=== PATIENT | female | born 1950 | race Caucasian/White ===

== ENCOUNTER 2018-07-22 15:55 | Inpatient (IN) | payer MEDICAID ==
[~2018-07-22] VITALS: Ht 182.8 cm; Wt 189.6 kg
--- NOTE | ~2018-07-22 | PR ---
[place], [place] PROGRESS NOTE [id number] UNIT #: [id number] ROOM: 427 DOCTOR: LOBITO KEARNEY,VIVIEN MORGAN) BIRTHDATE: [birth year] DOS: At the present time, the patient did agree to return to the [facility] in [place], [place]. When she arrives at the facility, she may eventually choose to go to another facility, but at the present time, she is quite willing to return for continued care. Thank you for this consult. VIVIEN ROBIN ED.D CM:ARMANDO [phone] VIVIEN ROBIN ED.D (BOB) 07/26/18 2321 interface
--- NOTE | ~2018-07-22 | CON ---
[place], [place] REPORT OF CONSULTATION NAME: [facility]ITH [id number] UNIT #: [id number] ROOM: 427 DOCTOR: VIVIEN ROBIN ED.D) BIRTHDATE: [birth year] DOS: HISTORY OF PRESENT ILLNESS: The patient is a 68-year-old female referred by the hospitalist for competency evaluation. At the present time, this patient is on the 4th floor at [facility]. She states that she is and has been residing in [facility]. She does have a daughter, who, according to the patient, is a nurse in the [place], [place] area. This patient does indicate she has multiple family physicians, but recently has been living at the [facility] in [place], [place]. Apparently, she was sent here from the [facility] for psychiatric evaluation and admission because of her delusional thoughts. This patient's medical history is pertinent for congestive heart failure, diabetes mellitus type 2, atrial fibrillation, hypothyroidism, sleep apnea, himanshu, peripheral vascular disorder and bipolar disorder. Her medications include Eliquis, calcium, iron, insulin, Lasix, Zestril, and Synthroid. This patient denies any substance abuse issues. She is a morbidly obese female and she realizes that she has issues with "blood clots" and needs medical care. She has difficulty with continence due to the fact she is on Lasix according to the patient. She was awake, alert and oriented in all three spheres. She adamantly denies any suicidal ideation or plan. She states she has never been hospitalized in a psychiatric facility in the past. At the present time, she does not appear to be having any active hallucinations. She is upset with Dr. Monet because she does not want to return to the [facility]. She does not believe she needs to go there. She does not want to go to the [facility] in [place], but it will depend upon where she can be placed once she is discharged. I do not believe at this point in time, I can force an involuntary admission to this patient to any kind of psychiatric facility because she is not a danger to herself or others and adamantly denies any suicidal ideation or plan. I spoke with case management and also with the hospitalist and they will attempt to send her back to the [facility] or another appropriate facility. She, again, adamantly refuses to go to the [facility] and refuses to receive any more treatment from Dr. Monet or any other psychiatric professional. She does appear to have a significant personality disorder, but does not actually appear to be psychotic at this time. DIAGNOSIS: Personality disorder, not otherwise specified. RECOMMENDATIONS: Since the patient refuses any psychiatric treatment and is not homicidal or suicidal, she should be placed in some type of long-term care facility with the assistance of her family. Thank you very much for this consult. [place], [place] REPORT OF CONSULTATION NAME: FIGUEROA SMITH UNIT #: [id number] ROOM: 427 DOCTOR: VIVIEN ROBIN ED.D (VITA) BIRTHDATE: [birth year] VIVIEN ROBIN ED.D CM:CONSTR:REPORT OF CONSULTATION 1104 08/17/18 1320 interface FRANCIS MONET MD
[~2018-07-22 15:55] MED LIST: 24 HOUR ALLERG9.9 ML NAS; ACIDOPHILUS1 EAC4 PO; AMMONIUM LACTA385 GM T; B12,B-12,B 12500 MC1 PO; CALCIUM500 M1 PO; CYCLOBENZAPRINE10 MG PO; DIAPER RASH57 GM T; ELIQUIS5 M1 PO; ERGOCAL2500 UNIT PO; HUMALOG100 UNIT/1 SQ; IRON325 M1 PO; LACTULOSE20 GM/30 M PO; LASIX40 MG PO; LEVOTHYROXINE300 MCG PO; LIDODERM1 EACH T; LIPITOR10 MG PO; MELATONIN3 MG PO; NYSTOP60 GM T; OYSTER SHELL 51 EACH PO; PANTOPRAZOLE SO40 MG PO; PERCOCET 5-3251 EACH PO; Rocaltrol0.25 MCG PO; TAB-A-VITE1 EACH PO; ZANTAC 150150 MG PO; ZESTRIL2.5 MG PO
[2018-07-22 16:00] VITALS: BP 153/65
[2018-07-22 16:03] VITALS: BP 127/67
--- NOTE | 2018-07-22 16:03 | NUR ---
A 68, admitted to , under the services of AIDA Rodriguez DO with a diagnosis of CELLULITIS. Chief complaint is CELLULITIS. Patient arrived via bed from [place]. Monitor applied. Initial assessment completed. Vital signs taken and recorded. AIDA RODRIGUEZ DO notified of admission to the unit. Orders received. See assessment for past medical history, medications and allergies. Patient and/or family oriented to unit. [facility] visitation policy reviewed. Clothing/patient valuable form completed. EVIE TINAJERO
--- NOTE | 2018-07-22 17:14 | NUR ---
Med rec reviewed with med rec provided by [facility]. All meds up to date in computer.
[2018-07-22 17:27] LABS: BASO # 0.1 10*3/uL (0.0-0.1); BASO % 1.2 % (0.0-1.0); EOS # 0.3 10*3/uL (0.0-0.4); EOS % 4.3 % (1.0-4.0); HEMATOCRIT 33.7 % (37.0-47.0); HEMOGLOBIN 10.6 g/dl (12.0-16.0); LYMPH # 1.6 10*3/uL (1.3-4.4); LYMPH % 20.8 % (27.0-41.0); MEAN CELL VOLUME 93.6 fl (81.0-99.0); MEAN CORPUSCULAR HGB 29.4 pg (27.0-31.0); MEAN CORPUSCULAR HGB CONC 31.5 g/dl (33.0-37.0); MEAN PLATELET VOLUME 10.5 fl (9.6-12.3); MONO # 0.6 10*3/uL (0.1-1.0); MONO % 7.4 % (3.0-9.0); NEUT # 4.9 10*3/uL (2.3-7.9); NEUT % 65.9 % (47.0-73.0); PLATELET COUNT AUTOMATED 226 10*3/uL (130-400); RED CELL DISTRI WIDTH 13.3 % (0-14.5); WHITE BLOOD COUNT 7.5 10*3/uL (4.8-10.8)
--- NOTE | 2018-07-22 17:40 | NUR ---
CONSULT CALLED TO [facility] FOR DR ZACARIAS.
[2018-07-22 17:44] LABS: ALBUMIN 2.6 gm/dl (3.1-4.5); ALKALINE PHOSPHATASE 99 U/L (45-117); BUN 15 mg/dl (7-24); CHLORIDE 105 mmol/L (98-107); CREATININE 0.97 mg/dL (0.55-1.02); POTASSIUM 3.6 mmol/L (3.5-5.1); SGOT/AST 11 IU/L (3-35); SGPT/ALT 15 U/L (12-78); SODIUM 142 mmol/L (136-145); TOTAL PROTEIN 6.4 gm/dL (6.4-8.2)
--- NOTE | 2018-07-22 17:45 | NUR ---
CONSULT CALLED TO DR BOWLES REGARDING PT WOUNDS. PHYSICIAN STATES THAT HE WILL SEE PT ON WEDNESDAY.
--- NOTE | 2018-07-22 18:36 | NUR ---
IV started right forearm with #22 protective cath after 0 attempts. Site prepped with Chloroprep. Sterile dressing applied. Patient tolerated procedure well. IV antibiotic infusing per order. EVIE TINAJERO
--- NOTE | 2018-07-22 20:00 | NUR ---
PT. ATTENDANT IN AND OUT OF ROOM FROM MULTIPLE CALL LIGHT HELPING PATIENT GET COMFORTABLE AND DOING PERICARE FOR INCONTINENT EPISODES.
--- NOTE | 2018-07-22 22:23 | NUR ---
DR. WILLOUGHBY IN ROOM AND EXAMINED PT. WOUND CULTURE OBTAINED FROM RIGHT HIP WOUND. 1/2 OF THE CULTURE SWAB FIT IN WOUND. DR. PATEL. PT. TOLERATED WELL. WOUND CULT SENT TO LAB FOR TESTING.
[2018-07-23] VITALS: BP 99/71
--- NOTE | 2018-07-23 03:59 | NUR ---
24 HR chart check completed.
[2018-07-23 06:59] LABS: BASO # 0.1 10*3/uL (0.0-0.1); BASO % 0.9 % (0.0-1.0); EOS # 0.2 10*3/uL (0.0-0.4); EOS % 3.4 % (1.0-4.0); HEMATOCRIT 33.1 % (37.0-47.0); HEMOGLOBIN 10.3 g/dl (12.0-16.0); LYMPH % 15.9 % (27.0-41.0); MEAN CELL VOLUME 93.8 fl (81.0-99.0); MEAN CORPUSCULAR HGB 29.2 pg (27.0-31.0); MEAN CORPUSCULAR HGB CONC 31.1 g/dl (33.0-37.0); MEAN PLATELET VOLUME 10.4 fl (9.6-12.3); MONO # 0.5 10*3/uL (0.1-1.0); MONO % 7.5 % (3.0-9.0); NEUT # 4.7 10*3/uL (2.3-7.9); PLATELET COUNT AUTOMATED 209 10*3/uL (130-400); RED BLOOD COUNT 3.53 10*6/uL (4.10-5.10); RED CELL DISTRI WIDTH 13.5 % (0-14.5); WHITE BLOOD COUNT 6.5 10*3/uL (4.8-10.8)
[2018-07-23 07:12] LABS: ALBUMIN 2.6 gm/dl (3.1-4.5); ALKALINE PHOSPHATASE 96 U/L (45-117); BUN 13 mg/dl (7-24); CHLORIDE 107 mmol/L (98-107); CHOLESTEROL 141 mg/dL (<200); CREATININE 0.87 mg/dL (0.55-1.02); FREE T4 1.48 ng/dl (0.76-1.46); HDL CHOLESTEROL 38 mg/dl (40-60); LDL CHOLESTEROL 80 mg/dL (9-159); POTASSIUM 3.5 mmol/L (3.5-5.1); SGOT/AST 9 IU/L (3-35); SGPT/ALT 14 U/L (12-78); SODIUM 143 mmol/L (136-145); TOTAL PROTEIN 6.2 gm/dL (6.4-8.2); TRIGLYCERIDES 114 mg/dl (<150); VLDL CHOLESTEROL 23 mg/dL (6-40)
[2018-07-23 08:57] LABS: VITAMIN D, 25-HYDROXY 56.4 ng/mL (30-100)
[2018-07-23 09:07] VITALS: BP 127/62
[2018-07-23 12:13] VITALS: BP 126/58
--- NOTE | 2018-07-23 13:53 | NUR ---
SPOKE WITH DR FREEDMAN REGARDING CONSULT. NEW ORDERS RECEIVED FOR KUB IN AM, BMP AND CBC IN AM. AM NURSE ON 07/24/[address] FREEDMAN AT 1000 WITH RESULTS.
[2018-07-23 16:04] VITALS: BP 124/60
--- NOTE | 2018-07-23 16:06 | NUR ---
O2 SAT 89-90% ON ROOM AIR, IGOR CASE NOTIFIED. O2 APPLIED VIA NASAL CANNULA AT 2 LITERS PER MINUTE.
--- NOTE | 2018-07-23 17:00 | NUR ---
PATIENT ATTENDANT REPORTS TO THIS NURSE THAT PATIENT HAS NEW SKIN TEAR TO MEDIAL ASPECT OF LEFT FOOT. UPON ASSESSING FOOT, DRESSING APPLIED. WILL NOTIFY ALL APPROPRIATE PARTIES.
[2018-07-23 20:00] VITALS: BP 113/66; BP 130/54
--- NOTE | 2018-07-23 21:50 | NUR ---
BLOOD SUGAR 120; NO COVERAGE REQUIRED.
[2018-07-24] VITALS: BP 121/64
--- NOTE | 2018-07-24 00:18 | NUR ---
TYLENOL GIVEN PER ORDER FOR HEADACHE RATED "6" SEE APR. PERICARE GIVEN FOR INCONT URINE. REPOSITIONED PT. IN BED FOR COMFORT.
--- NOTE | 2018-07-24 01:15 | NUR ---
PT. SLEEPING TYLENOL EFFECTIVE FOR PAIN.
--- NOTE | 2018-07-24 03:40 | NUR ---
24 HR chart check completed.
--- NOTE | 2018-07-24 06:10 | NUR ---
INCONT CARE DONE. PROTECTIVE BARRIER OINT. APPLIED TO PERIAREA. PT. REFUSED IV ANTIBIOTIC AT THIS TIME. STATED "I DON'T WANT THOSE RIGHT NOW"
--- NOTE | 2018-07-24 06:35 | NUR ---
DR FRAUSTO AWARE OF [facility] 26.9
[2018-07-24 07:54] LABS: BASO # 0.1 10*3/uL (0.0-0.1); BASO % 0.9 % (0.0-1.0); EOS # 0.2 10*3/uL (0.0-0.4); EOS % 1.7 % (1.0-4.0); HEMATOCRIT 31.7 % (37.0-47.0); LYMPH % 10.6 % (27.0-41.0); MEAN CELL VOLUME 93.2 fl (81.0-99.0); MEAN CORPUSCULAR HGB 29.4 pg (27.0-31.0); MEAN CORPUSCULAR HGB CONC 31.5 g/dl (33.0-37.0); MEAN PLATELET VOLUME 10.4 fl (9.6-12.3); MONO # 0.6 10*3/uL (0.1-1.0); MONO % 6.8 % (3.0-9.0); NEUT # 7.1 10*3/uL (2.3-7.9); NEUT % 79.7 % (47.0-73.0); PLATELET COUNT AUTOMATED 186 10*3/uL (130-400); RED CELL DISTRI WIDTH 13.4 % (0-14.5)
[2018-07-24 08:00] VITALS: BP 138/55
[2018-07-24 08:07] LABS: BUN 14 mg/dl (7-24); CHLORIDE 109 mmol/L (98-107); CREATININE 0.95 mg/dL (0.55-1.02); POTASSIUM 3.4 mmol/L (3.5-5.1); SODIUM 144 mmol/L (136-145)
--- NOTE | 2018-07-24 09:00 | NUR ---
PT CRYING OUT AND APPEARS UPSET DUE TO HER BED ALARM AND HER RED BED. 1:1 INTERVENTIONS GIVEN AND IT IS EXPLAINED TO HER THAT WE ARE TRYING TO KEEP HER SAFE; AND THE RED BED IS TO HELP PROMOTE HEALING OF HER WOUNDS THAT WERE PRESENT ON ADMISSION. PT STILL UPSET AT THIS TIME. WILL CONTINUE TO EDUCATE PT. PT REFUSES AM IRON 325MG AND ROCALTROL PILL. WILL NOTIFY PHYSICIAN. PT CURRENTLY SITTING UP IN BED, LOOKING AT IPAD. BED ALARM AND ALL SAFETY MEASURES IN PLACE. CALL LIGHT IN REACH.
--- NOTE | 2018-07-24 09:30 | NUR ---
PHYSICAL THERAPY PT EVAL COMPLETED ON LEVEL 4: FULL EVALUATION TO FOLLOW. RECOMMEND PT WHILE HERE TO ADDRESS DECREASED STRENGTH AND FUNCTIONAL MOBILITY . PT EVAL IS MODERATE COMPLEXITY BASED ON CHART REVIEW, TEST RESULTS AND EVALUATION: 21703. D/C RECOMMENDATIONS ARE TO RETURN TO FACILITY WITH SNF ON D/C TO WORK ON REGAINING HIGHEST LEVEL OF FUNCTIONAL MOBILITY PATIENT WNATS TO BE ABLE TO WALK SHORT DISTANCES AND HAS BEEN UNABLE TO DO SO FOR OVER A YEAR. THANK YOU FOR REFERRAL EVONNE FLORES PT
--- NOTE | 2018-07-24 11:03 | NUR ---
NOTIFIED DR MIRELES THAT PT IS CALLING ADMISSIONS CLERK OF HOSPITAL AND ATTEMPTING TO BE CONNECTED TO [employer]. ALSO NOTIFIED PHYSICIAN THAT PT IS CONTINUING TO HAVE BEHAVIORS THIS MORNING SUCH CALLING OUT/COMPLAINING ABOUT BEDS/COMPLAINING ABOUT BED ALARM. NEW ORDERS RECEIVED TO NOTIFY JOSE CONSULTED. ROSHNI FRIAS CALLED, VOICEMAIL LEFT ON HER ANSWERING MESSAGE. AWAITING CALL BACK. WILL CONTINUE TO MONITOR PT.
[2018-07-24 12:00] VITALS: BP 148/49
--- NOTE | 2018-07-24 12:59 | NUR ---
SPOKE WITH ROSHNI FRIAS REGARDING PT BEHAVIORS. NEW ORDERS RECEIVED: DISCONTINUE RISPERDAL. NEW ORDERS: INVEGA 6 MG PO Q AM AND TRINTELLIX 10 MG PO QHS.
--- NOTE | 2018-07-24 15:30 | NUR ---
PT STATES THAT SHE NO LONGER WANTS TO BE ON A RED LOW AIR LOSS MATTRESS AND IS REQUESTING A FIRMER MATTRESS. THE BENEFITS OF THE LOW AIR LOSS MATTRESS IS EXPLAINED TO THE PATIENT NUMEROUS TIMES. WHEN ATTEMPTING TO EXPLAIN THESE THINGS TO THE PATIENT, PATIENT BECOMES EMOTIONAL AND CRIES. AFTER SPEAKING WITH SHIFT DIRECTOR, IT IS DECIDED THAT WE WILL TRANSFER PATIENT FROM RED BED TO A BLUE BED. PT CURRENTLY ON BLUE MATTRESS AT THIS TIME AND STATES THAT SHE IS MUCH MORE COMFORTABLE.
[2018-07-24 16:00] VITALS: BP 126/59
--- NOTE | 2018-07-24 16:52 | NUR ---
PT IS DENYING OSCAL MEDICATION AND IS DENYING IV LASIX. WILL NOTIFY PHYSICIANS. ATTEMPTSX3 MADE, IV LASIX EXPLAINED TO PT, INEFFECTIVE. WILL NOTIFY PHYSICIANS.
[2018-07-24 20:00] VITALS: BP 129/58
--- NOTE | 2018-07-24 22:46 | NUR ---
PT's IV INFILTRATED AND SHE IS REFUSING A NEW SITE TO BE STARTED. SHE STATES "JUST TAKE IT OUT, I'M DONE WITH IT, I DON'T WANT ANYTHING ELSE THROUGH THERE". DR. FRAUSTO NOTIFIED. IV TO RIGHT ARM REMOVED.
[2018-07-25] VITALS: BP 110/56
--- NOTE | 2018-07-25 02:42 | NUR ---
PT SITTING UP AT SIDE OF BED AT THIS TIME WITH COMPLAINTS OF PAIN TO HER LEFT ELBOW. TYLENOL WAS REQUESTED AND RECIEVED. RESPIRATIONS ARE EASY AND NONLABORED. BED IS LOCKED AND IN THE LOWEST POSITION, CALL LIGHT IS WITHIN REACH. WILL CONTINUE TO MONITOR PT & REASSESS PAIN LEVEL.
--- NOTE | 2018-07-25 05:25 | NUR ---
DISCUSSED WITH PT THE IMPORTANCE OF HER IV MEDICATIONS, INCLUDING HER ANTIBIOTICS AND LASIX, AND THE NEED FOR THEM TO CONTINUE TO GET BETTER. PT VERBALIZES UNDERSTANDING BUT IS STILL REFUSING IV ACCESS AT THIS TIME STATING "I AM DONE WITH THAT REGIMEN" AND THAT "I WILL ONLY TAKE PILLS".
--- NOTE | 2018-07-25 06:26 | NUR ---
MESSAGE PUT IN TO PHOTOGRAPHER LITHOGRAPHIC AT PT'S REQUEST BECAUSE SHE STATES SHE DOES NOT WANT TO RETURN TO [facility] FOR SEVERAL DIFFERENT REASONS. THROUGHOUT THE NIGHT PT VOICED MANY CONCERNS ABOUT RETURNING AND ASKED HOW SHE GOES ABOUT "CUTTING TIES" WITH THE FACILITY ALL TOGETHER.
[2018-07-25 07:03] LABS: BASO # 0.1 10*3/uL (0.0-0.1); BASO % 1.2 % (0.0-1.0); EOS # 0.3 10*3/uL (0.0-0.4); HEMATOCRIT 34.4 % (37.0-47.0); HEMOGLOBIN 10.6 g/dl (12.0-16.0); LYMPH # 1.1 10*3/uL (1.3-4.4); LYMPH % 16.6 % (27.0-41.0); MEAN CELL VOLUME 93.7 fl (81.0-99.0); MEAN CORPUSCULAR HGB 28.9 pg (27.0-31.0); MEAN CORPUSCULAR HGB CONC 30.8 g/dl (33.0-37.0); MEAN PLATELET VOLUME 10.8 fl (9.6-12.3); MONO # 0.5 10*3/uL (0.1-1.0); MONO % 7.3 % (3.0-9.0); NEUT # 4.8 10*3/uL (2.3-7.9); NEUT % 69.5 % (47.0-73.0); PLATELET COUNT AUTOMATED 205 10*3/uL (130-400); RED BLOOD COUNT 3.67 10*6/uL (4.10-5.10); RED CELL DISTRI WIDTH 13.2 % (0-14.5); WHITE BLOOD COUNT 6.9 10*3/uL (4.8-10.8)
[2018-07-25 07:20] LABS: BUN 16 mg/dl (7-24); CHLORIDE 108 mmol/L (98-107); CREATININE 1.05 mg/dL (0.55-1.02); POTASSIUM 3.7 mmol/L (3.5-5.1); SODIUM 142 mmol/L (136-145)
--- NOTE | 2018-07-25 07:40 | NUR ---
PHYSICAL THERAPY Nursing screen received. PT orders also received. Thank you. Kay Bradshaw,PT
[2018-07-25 08:00] VITALS: BP 123/55
--- NOTE | 2018-07-25 08:41 | NUR ---
FIGUEROA SMITH [id number] Please refer to the physician's history and physical for past medical history, comorbid conditions, and allergies. Diagnosis: CELLULITIS Arnoldo Score: 13,AT RISK WOUND DESCRIPTIONS: WOUND #1 LEFT HEEL INTACT, RED AND BLANCABLE. WOUND #2 RIGHT GREAT TOE RED AND EDEMA NOTED. NO DRAINAGE AT TIME OF ASSESSMENT. Wound Number: 3 Location of the wound: LEFT GLUTEAL FOLD Thickness: Partial Size: 0.5cm X 1.5cm X 0.1cm Tunneling: NONE Undermining: NONE Sinus Tract: NONE Presence of Exudate: Serous Amount: Light Color: Red Odor: None Periwound Skin Appearance: Normal Wound edges: APPROXIMATED Pain (associated with wound): DENIED AT TIME OF ASSESSMENT How does patient state this happened? PATIENT UNSURE HOW THIS HAPPENED. Wound Number: 4 Location of the wound: RIGHT HIP Thickness: Full Size: 0.6cm X 4cm X 0.1cm Tunneling: NONE Undermining: NONE Sinus Tract: NONE Presence of Exudate: Serous Amount: Light Color: Red, Yellow Odor: None Periwound Skin Appearance: Erythema Wound edges: APPROXIMATED Pain (associated with wound): DENIED AT TIME OF ASSESSMENT How does patient state this happened? PATIENT UNSURE HOW THIS HAPPENED. WOUND #5 LEFT MID UPPER THIGH SKIN INTACT. Wound Number: 6 Location of the wound: LEFT FOOT Thickness: Full Size: 0.7cm X 0.5cm X 0.1cm Tunneling: NONE Undermining: NONE Sinus Tract: NONE Presence of Exudate: Serous Amount: Light Color: Red, Yellow Odor: None Periwound Skin Appearance: Normal Wound edges: APPROXIMATED Pain (associated with wound): DENIED AT TIME OF ASSESSMENT How does patient state this happened? PATIENT UNSURE HOW THIS HAPPENED. If wound is on legs/feet or hands, capillary refill time, pulses, color temp, sensation: CAP REFILL < 3 SECONDS. Surface the patient is resting on: Isoflex SKIN PREVENTION RECOMMENDATION: 1. Pressure redistribution support surface as appropriate 2. Elevate heels 3. Remove boots/TEDS every shift and reapply 4. Head of bed 30 degrees as tolerated 5. Assess nutrition and hydration 6. Manage moisture 7. Avoid the use of containment devices while in bed 8. Use absorptive products on surfaces limit layers of linens on bed 9. Turn and reposition every 1-2 hours in bed and every 1 hour in chair as tolerated 10. Weight shifts every 15 minutes while up in chair 11. Offloading with pillows or device to keep heels elevated off bed 12. Monitor skin at least every shift 13. Inspect under medical devices twice a day WOUND TREATMENT RECOMMENDATIONS: FULL THICKNESS GUIDELINES TO RIGHT HIP, LEFT GLUTEAL FOLD AND LEFT FOOT: CLEANSE WITH NSS APPLY SUREPREP AROUND THE WOUND ALLOW TO DRY APPLY THERAHONEY AND COVER WITH OPTIFOAM GENTLE. HYDRAGUARD TO BUTTOCK FOR PROTECTION. WHEELCHAIR CUSION WHEN OUT OF BED.
--- NOTE | 2018-07-25 10:32 | NUR ---
Nursing screen received 07/22/18, OT referral received 07/23/18 on [facility]. Patient was transferred to medical floor for acute care needs. When medically stable, if patient has a decline in ADls, refer to OT. Thank you. Nevaeh Adler OTR/Antoine
--- NOTE | 2018-07-25 11:19 | NUR ---
Dr. Rodriguez notified of wound care recommendations.
--- NOTE | 2018-07-25 12:03 | NUR ---
PHYSICAL THERAPY Informed consent given by patient. Patient has report of fear of falling and not walking for about a year. Patient had no complaints of pain. Patient was identified by name and . Patient was on bedside commode upon this CHIP UNLOADER arriving in patient's room. Patient transferred from bedside commode to bed with MAX A X 4 and patient slid her buttocks over on bed from bedside commode. this transfer did require MAX A X 4. Patient was moved up in bed with MAX A X 3. Shortly, later in the morning, the patient was sitting at EOB after Nursing finished working with her. Patient transferred sit to stand with MAX A X 2 to Standard Walker where she stood with MIN A X 2 for < 10 seconds and then sat back into bed. Patient then SIT to STAND again at Standard Walker with MAX A X 2 with verbal cues for scooting out to EOB, pushing off bed with one hand, bringing feet back underneath, and nose over toes. Patient stood at Walker for > 20 SECONDS with verbal cues for locking knees and tactile cues for locking knees. Patient transferred back to supine in bed with MAX A X 2. PATIENT MOVED UP IN BED with sheet with MAX A X 2. Patient was left in supine in bed with HEAD OF BED ELEVATED, CALL LIGHT WITHIN REACH, AND BED ALARM ACTIVATED. Patient was 1:1 with this CHIP UNLOADER for 15 minutes total. EDUAR VALADEZ CHIP UNLOADER
--- NOTE | 2018-07-25 12:22 | NUR ---
case management visits with patient, [facility], patient was admitted from the U for behavior problems at this facility, discharge plans are undecided at this time whether patient will be going back to [facility] or another facility, supply chain planner is working on this, case management will follow
--- NOTE | 2018-07-25 12:35 | NUR ---
Contacted Sukhi at [facility] and spoke with SIVA Carney. Angelika stated the patient was sent here for a U stay. The patient has 3 diagnosis that are not being treated, she isn't on any meds for these conditions. She stated patient diagnosis is Bipolar disorder, Delusional disorder, Histrionic Personality disorder. Patient is not there skilled, she is there under her Medicaid therefore considered retirement. They are stating the patient must go to U and get treated prior to returning to their facility.
[2018-07-25 16:00] VITALS: BP 131/58
[2018-07-25 20:00] VITALS: BP 120/77
[2018-07-26] VITALS: BP 128/75
--- NOTE | 2018-07-26 02:32 | NUR ---
CONSULT CALLED TO DR. ROBIN ANSWERING SERVICE. MESSAGE AND INFORMATION LEFT WITH JEWELRY ENAMELER
--- NOTE | 2018-07-26 04:42 | NUR ---
Wound Care Recommendations: D/C skin tear guidelines. D/C unstageable guidelines. D/C both stage 2 partial thickness guidelines. Clarify full thickness guidelines: Cleanse right hip, left gluteal fold and left foot with nss and apply sureprep around the wound therahoney to wound bed and cover with optifoam gentle. Cleanse entire buttocks with soap and water and apply hydraguard every shift and prn for protection. Wheelchair cushion when oob.
[2018-07-26 07:47] LABS: BUN 15 mg/dl (7-24); CHLORIDE 107 mmol/L (98-107); CREATININE 0.95 mg/dL (0.55-1.02); POTASSIUM 3.6 mmol/L (3.5-5.1); SODIUM 142 mmol/L (136-145)
--- NOTE | 2018-07-26 09:47 | NUR ---
PT REFUSING VITAL SIGNS AND ALL AM MEDS. WILL CONTINUE TO MONITOR.
--- NOTE | 2018-07-26 10:20 | NUR ---
DR ROBIN IN TO SEE PATIENT.
--- NOTE | 2018-07-26 10:31 | NUR ---
Dr. Moe notified of wound care recommendations.
--- NOTE | 2018-07-26 11:14 | NUR ---
DR RADHA COULTERFIED OF POSITIVE WOUND CULTURES
--- NOTE | 2018-07-26 12:00 | NUR ---
Contacted [facility] and explained patient has been deemed competent and she is refusing a U stay with Dr. Monet. She will be discharged back to their facility today. The Natasha PANIAGUA stating that it will have to go through their content administrator; however I've already contacted the Ja who is stating patient's insurance is traditional medicaid and patient is stating she has resided there for 6 months. Therefore she is considered a half-way patient and the group home cannot, by law, refuse to let her return. They must allow her to return and present her with a 30 day discharge notice if they choose. Spoke with patients RN who talked with patient. Patient stated she does not want anyone from here contacting any of her family members and refused to give any contact information.
--- NOTE | 2018-07-26 12:30 | NUR ---
Spoke with Occupational Therapist'S Assistant from [facility] who is stating patient if fine to return and she herself has talked with the patient who also agrees to go back. Transportation is scheduled for 5 PM with [place]. NH, nursing/jd edwards developer notified. Patient has stated not to contact her family.
--- NOTE | 2018-07-26 13:03 | NUR ---
Spoke with director security management from [facility] who is asking to speak with Dr. Monet and or [place] stating he is unsure this patient is wishing to return to their facililty. I then explained the patient has talked with our Drywall Stripper Helper Zenaida and has agreed to return to this facility. He was unsure if the facility wanted her to return until I explained to him that I've been in contact with the Ombudsman. This patient is considered senior care and this is her "home". She has the right to return and if they do not wish to keep her as a resident they must present her with a 30 discharge notice. I told this servicenow administrator this patient is set up with transportation at 5 PM today and her discharge is already in.
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
--- NOTE | 2018-07-26 15:01 | NUR ---
CONVERSATION HELD WITH PATIENT REGARDING HER PLANNED DISCHARGE AT 1500 TO RETURN TO [facility]. PATIENT BECOMES TEARFUL AND AGGITATED STATING THAT SHE IS NOT GOING BACK THERE. PATIENT WAS PROVIDED WITH ALL OPTIONS REGARDING HER CARE WELL EDUCATED ON THE REASONS BEHIND SENDING HER BACK TO [facility] IN THAT SHE IS MEDICALLY CLEARED AND WE NO LONGER HAVE A REASON TO KEEP HER ADMITTED HERE. EFRA, DIRECTOR, VERNA, GLASSWARE MAKER DEMONSTRATOR, DR. VILLALBA, DR. ROBIN, AND THIS RN WITNESS PATIENT AGREE TO RETURN BACK TO [facility]. PATIENTS BELONGINGS WERE THEN PACKED UP PER HER REQUEST AND HER BELONGINGS IN THE LOCK BOX WERE RETRIEVED AND SIGNED FOR BY THE PATIENT WITH THIS RN WITNESS. PATIENT APPEARS TO NOW BE IN A CALMER STATE. BED IS LOW, CALL LIGHT WITHIN REACH, WILL CONTINUE TO MONITOR.
[2018-07-26] MEDS ORDERED: DOXYCYCLINE MO100 M1 PO (15:31)
[2018-07-26] MEDS ORDERED: PALIPERIDONE ER3 MG PO (15:31)
[2018-07-26] MEDS ORDERED: BRIN10TA PO (15:31)
[2018-07-26 16:00] VITALS: BP 136/82
--- NOTE | 2018-07-26 16:34 | NUR ---
PT REFUSING BLOOD SUGAR TEST AT THIS TIME.
--- NOTE | 2018-07-26 17:05 | NUR ---
Discharge instructions reviewed with patient/family. Patient receptive and verbalizes understanding. Follow-up care arranged. Written instructions given to patient/family. SEAN DAVIS
--- NOTE | 2018-07-26 17:08 | NUR ---
ATTEMPTED TO CALL REPORT TO [facility], AWAITING CALL BACK.
--- NOTE | 2018-07-26 17:40 | NUR ---
ATTEMPTED TO CONTACT [facility] AGAIN TO GIVE REPORT. AWAITING CALL BACK.
--- NOTE | 2018-07-27 07:27 | NUR ---
PHYSICAL THERAPY CO-SIGN I approve of the Phyical Therapy notes written above. MINA MOHAMUD PT
== END 2018-07-26 17:05 | DRG 603 ==
LOC: 4E 15:55
PROVIDERS: Internal Medicine; Registered Nurse; ADMIT Internal Medicine
DX: L03.116 Cellulitis of left lower limb (principal); F23 Brief psychotic disorder; E44.0 Moderate protein-calorie malnutrition; Z68.43 Body mass index [BMI] 50.0-59.9, adult; L03.115 Cellulitis of right lower limb; F31.9 Bipolar disorder, unspecified; B37.2 Candidiasis of skin and nail; G47.33 Obstructive sleep apnea (adult) (pediatric); I89.0 Lymphedema, not elsewhere classified; E11.51 Type 2 diabetes mellitus with diabetic peripheral angiopathy without gangrene; I77.89 Other specified disorders of arteries and arterioles; L89.90 Pressure ulcer of unspecified site, unspecified stage; E89.0 Postprocedural hypothyroidism; F60.9 Personality disorder, unspecified; E66.01 Morbid (severe) obesity due to excess calories; I48.0 Paroxysmal atrial fibrillation; I50.9 Heart failure, unspecified; K21.9 Gastro-esophageal reflux disease without esophagitis; E78.5 Hyperlipidemia, unspecified; Z79.4 Long term (current) use of insulin; Z90.710 Acquired absence of both cervix and uterus; Z88.0 Allergy status to penicillin; Z79.899 Other long term (current) drug therapy